=== PATIENT | female | born 1990 | race Hispanic/Latino ===

== ENCOUNTER 2018-12-13 05:12 | Emergency (ER) | payer OTHER ==
[~2018-12-13] VITALS: Ht 162.6 cm; Wt 79.1 kg
[2018-12-13 05:12] VITALS: BP 137/83
[~2018-12-13 05:12] MED LIST: COLA100C5 PO; DRAM50TA7 PO; FAMO1TAB25 PO; IBUP-1114 PO; MAPA500T2 PO; ONDA4TAB6 PO; PRENTAB55 PO; ZOFR4TAB14 PO
[2018-12-13] MEDS ORDERED: LIDOCAINE 2% MDV 20 ML VIAL As Ordered ONE (06:11)
[2018-12-13] MEDS ORDERED: LIDOCAINE 2% MDV 20 ML VIAL SC ONE (06:15)
== END 2018-12-13 07:08 | disposition home or self-care (01) ==
LOC: M ED 05:12
DX: S61.213A Laceration without foreign body of left middle finger without damage to nail, initial encounter (principal); W26.0XXA Contact with knife, initial encounter; Y92.9 Unspecified place or not applicable; Y93.G1 Activity, food preparation and clean up; Y99.0 Civilian activity done for income or pay; F41.9 Anxiety disorder, unspecified; F32.9 Major depressive disorder, single episode, unspecified; Z79.899 Other long term (current) drug therapy